=== PATIENT | female | born 1995 | race Caucasian/White ===

== ENCOUNTER 2021-01-31 11:06 | Emergency (ER) | payer OTHER ==
[~2021-01-31] VITALS: Ht 162.6 cm; Wt 55.8 kg
[~2021-01-31 11:06] MED LIST: ADVAIR 500-501 EACH IH; ADVAIRDISKUS; ALBUTEROL; ALBUTEROL2.5 MG/0.1 IH; ALBUTEROL2.5 MG/3 M IH; ALBUTEROL2.5 MG/31 INH; AZITHROMYC200 MG/51 PO; AZITHROMYCIN 2250 MG PO; FLOVENT HFA 2220 MC1 IH; FLOVENT HFA 2220 MCG IH; LOPRESSOR25 PO; MEDROLDOSEPACK PO; NORCO 5-325 TA1 EACH PO; ORAPRED15 MG/5 ML PO; PREDNISONE 10 M10 MG PO; PREDNISONE 20 M20 M1 PO; PREDNISONE50 MG PO; PROAIR HFA8.5 GM IH; PROVENTIL HFA6.7 G1 INH; PROVENTIL IH; SINGULAIR 10 MG10 M1 PO; SINGULAIR4 MG; STERAPRED DS10 MG PO; SYMBICORT; SYMBICORT160 MCG/4.; VENTOLIN HFA 1818 GM INH; VENTOLIN17 GM INH; XOPENEX HF1 UDINHALE IH; XOPENEX0.63 MG/3 IH; ZPAK PO; ZYRTEC 10 MG TA10 M1 PO; ZYRTEC 10 MG TA10 MG PO
[2021-01-31] MEDS ORDERED: SINGULAIR 10 MG10 M1 (11:16)
[2021-01-31] MEDS ORDERED: SYMBICORT80 MCG/4.1 (11:16)
[2021-01-31] MEDS ORDERED: ALBUTEROL2.5 MG/0.1 INH ×2 (11:17→12:44)
[2021-01-31] MEDS ORDERED: IPRATROPIU0.2 MG/1 M INH (12:44)
[2021-01-31] MEDS ORDERED: PREDNISONE 20 M20 MG PO (12:44)
[2021-01-31 12:55] VITALS: BP 114/65
== END 2021-01-31 12:56 | disposition home or self-care (01) ==
LOC: M.ERS 11:06
DX: J45.901 Unspecified asthma with (acute) exacerbation (principal); Z88.1 Allergy status to other antibiotic agents

== ENCOUNTER 2021-06-14 17:03 | Emergency (ER) | payer OTHER ==
[~2021-06-14] VITALS: Ht 162.6 cm; Wt 59.0 kg
[~2021-06-14 17:03] MED LIST changes: +ALBUTEROL2.5 MG/0.1 INH; +IPRATROPIU0.2 MG/1 M INH; +PREDNISONE 20 M20 MG PO; +SINGULAIR 10 MG10 M1; +SYMBICORT80 MCG/4.1
[2021-06-14 17:44] LABS: ABSOLUTE BASOPHILS 0.1 thou/uL (0.0-0.2); ABSOLUTE EOSINOPHILS 1.3 thou/uL (0.0-0.7); ABSOLUTE LYMPHOCYTES 3.1 thou/uL (0.8-5.3); ABSOLUTE MONOCYTES 0.6 thou/uL (0.0-1.2); ABSOLUTE NEUTROPHILS 8.9 thou/uL (1.6-8.1); EOSINOPHILS 9.2 %; HEMATOCRIT 42.3 % (37.0-47.0); HEMOGLOBIN 14.1 gm/dL (12.0-15.0); MCH 29.5 pg (26.0-34.0); MCHC 33.3 g/dL (28.0-37.0); MCV 88.4 fL (80.0-100.0); MONOCYTES 4.2 %; MPV 9.3 fl. (7.2-11.1); NUCLEATED RBCS 0 /100WBC; PLATELET COUNT* 256 thou/uL (150-400); POLYS 63.6 %; RBC 4.79 mil/uL (4.20-5.00); RDW-CV 12.4 % (10.5-14.5)
[2021-06-14 17:59] LABS: CALCIUM 9.3 mg/dL (8.5-10.1); CREATININE 0.8 mg/dL (0.6-1.3); POTASSIUM 4.2 mmol/L (3.5-5.1)
[2021-06-14 18:10] LABS: ALBUMIN 4.2 g/dL (3.4-5.0); TOTAL BILIRUBIN 0.4 mg/dL (<0.1-1.0); TOTAL PROTEIN 8.2 g/dL (6.4-8.2)
[2021-06-14] MEDS ORDERED: VENTOLIN HFA 1818 GM INH (20:08)
[2021-06-14] MEDS ORDERED: PREDNISONE 10 M10 MG PO (20:08)
[2021-06-14] MEDS ORDERED: ALBUTEROL2.5 MG/0.5 INH (20:08)
[2021-06-14 20:24] VITALS: BP 126/78
== END 2021-06-14 20:26 | disposition home or self-care (01) ==
LOC: M.ERS 17:03
PROVIDERS: Nurse Practitioner Family
DX: J45.901 Unspecified asthma with (acute) exacerbation (principal); Z79.899 Other long term (current) drug therapy; Z88.1 Allergy status to other antibiotic agents

== ENCOUNTER 2021-08-05 00:57 | Emergency (ER) | payer OTHER ==
[~2021-08-05] VITALS: Ht 157.5 cm; Wt 58.1 kg
[~2021-08-05 00:57] MED LIST changes: +ALBUTEROL2.5 MG/0.5 INH
[2021-08-05 01:23] LABS: HEMATOCRIT 40.3 % (37.0-47.0); HEMOGLOBIN 13.7 gm/dL (12.0-15.0); MCH 30.4 pg (26.0-34.0); MCV 89.4 fL (80.0-100.0); MPV 9.2 fl. (7.2-11.1); RBC 4.51 mil/uL (4.20-5.00); RDW-CV 12.3 % (10.5-14.5); WBC 10.6 thou/uL (4.0-11.0)
[2021-08-05 01:33] LABS: CALCIUM 8.3 mg/dL (8.5-10.1); CREATININE 0.8 mg/dL (0.6-1.3); POTASSIUM 3.6 mmol/L (3.5-5.1)
[2021-08-05 01:38] LABS: ALBUMIN 3.7 g/dL (3.4-5.0); TOTAL BILIRUBIN 0.3 mg/dL (<0.1-1.0); TOTAL PROTEIN 7.5 g/dL (6.4-8.2)
[2021-08-05] MEDS ORDERED: IPRAT-ALBUT 0.5-3 ML INH (02:36)
[2021-08-05] MEDS ORDERED: PREDNISONE50 MG PO (02:36)
[2021-08-05 02:42] LABS: URINE BILIRUBIN NEGATIVE (Negative); URINE BLOOD 1+ (Negative); URINE CLARITY CLEAR; URINE COLOR YELLOW; URINE GLUCOSE-RANDOM NEGATIVE (Negative); URINE KETONES TRACE (Negative); URINE LEUKOCYTES-REFLEX NEGATIVE (Negative); URINE NITRITE-REFLEX NEGATIVE (Negative); URINE PROTEIN NEGATIVE (Negative); URINE SPECIFIC GRAVITY >= 1.030 (1.005-1.030); URINE UROBILINOGEN 0.2 E.U./dl (0.2-1.0)
[2021-08-05 03:00] VITALS: BP 118/70
[2021-08-05 03:08] LABS: MUCUS 0-3 Light strn/LPF (None Seen); SQUAMOUS >10 Many /LPF (0-3)
[2021-08-05 03:09] LABS: URINE RBC 3-10 Few /HPF (0-2); URINE WBC-REFLEX 0-5 Rare /HPF (0-5)
[2021-08-05 03:10] LABS: CALCIUM OXALATE 4-10 Moderate /LPF (None Seen); CASTS None Seen /LPF (None Seen)
== END 2021-08-05 03:00 | disposition home or self-care (01) ==
LOC: M.ERS 00:57
PROVIDERS: Personal Emergency Response Attendant
DX: J45.901 Unspecified asthma with (acute) exacerbation (principal); Z20.822 Contact with and (suspected) exposure to COVID-19; Z79.899 Other long term (current) drug therapy; Z88.1 Allergy status to other antibiotic agents

== ENCOUNTER 2021-10-22 08:47 | Emergency (ER) | payer OTHER ==
[~2021-10-22] VITALS: Ht 160 cm; Wt 59.0 kg
[~2021-10-22 08:47] MED LIST changes: +IPRAT-ALBUT 0.5-3 ML INH
[2021-10-22] MEDS ORDERED: VENTOLIN HFA 1818 GM INH (09:01)
[2021-10-22] MEDS ORDERED: PREDNISONE 20 M20 M1 PO (09:01)
[2021-10-22 09:41] VITALS: BP 124/69
== END 2021-10-22 09:41 | disposition home or self-care (01) ==
LOC: M.ERS 08:47
DX: J45.901 Unspecified asthma with (acute) exacerbation (principal); Z79.899 Other long term (current) drug therapy; Z88.8 Allergy status to other drugs, medicaments and biological substances